=== PATIENT | female | born 1970 | race Caucasian/White ===

== ENCOUNTER 2019-05-24 17:44 | Emergency (ER) | payer MEDICAID, OTHER ==
[~2019-05-24] VITALS: Ht 170.2 cm; Wt 104.5 kg
[~2019-05-24 17:44] MED LIST: ALBU8.5H3 IH; CARI250T PO; HYDR-3965 PO
[2019-05-24 19:08] VITALS: BP 126/84
[2019-05-24] MEDS ORDERED: ALBU8HFA IH (19:14)
[2019-05-24] MEDS ORDERED: BACITRACIN 0.9 GM PACKET OINTMENT TP ONE (19:15)
[2019-05-24] MEDS ORDERED: CEPHALEXIN MONOHYDRATE 500 MG CAPSULE PO ONE (19:15)
[2019-05-24] MEDS ORDERED: HYDROCODONE/ACETAMINOPHEN 5-325 MG TABLET PO ONE (19:15)
== END 2019-05-24 21:45 | disposition home or self-care (01) ==
LOC: EMS 17:45
DX: S91.211A Laceration without foreign body of right great toe with damage to nail, initial encounter (principal); J45.909 Unspecified asthma, uncomplicated; F17.210 Nicotine dependence, cigarettes, uncomplicated; Z79.899 Other long term (current) drug therapy; W20.8XXA Other cause of strike by thrown, projected or falling object, initial encounter; Y93.89 Activity, other specified; Y92.89 Other specified places as the place of occurrence of the external cause; Y99.8 Other external cause status